=== PATIENT | female | born 2000 | race African-American/Black ===

== ENCOUNTER → 2022-07-24 | Day surgery (SDC) | payer MEDICARE, OTHER ==
[~2022-07-24] MED LIST: ABILIFY5 MG PO; FENTANYL CITRATE/PF 100MCG/2 ML INJ ONE; HEATHER0.35 MG PO; LIDOCAINE HCL 2% LOCAL INJ 5 ML SDV VIAL INJ ONE; MESALAMINE1 GM PO; MULTI-VITAMIN1 EACH PO; OMEPRAZOLE40 MG PO; PROBIOTIC PO; PROPOFOL IV EMULSION 10 MG/ML 20 ML VIAL ONE
[2022-07-24 17:30] VITALS: BP 106/76
== END | disposition home or self-care (01) ==
LOC: OR 13:13
PROVIDERS: ATTEND Internal Medicine Gastroenterology
DX: K51.90 Ulcerative colitis, unspecified, without complications (principal); K51.20 Ulcerative (chronic) proctitis without complications; M19.90 Unspecified osteoarthritis, unspecified site; F41.9 Anxiety disorder, unspecified; F32.A Depression, unspecified; Z79.899 Other long term (current) drug therapy
CPT/HCPCS: 45380; 81025; 83630; 83993; 86140; 86256; 86671; 87045; 87177; 87324; 87328; 87449; 88305; J2001; J2704; J3010; 45378

== ENCOUNTER → 2024-06-17 | Outpatient (REF) | payer MEDICARE, OTHER ==
[~2024-06-17] MED LIST changes: +DICYCLOMINE HCL20 MG PO; -FENTANYL CITRATE/PF 100MCG/2 ML INJ ONE; +FLUOXETINE HCL20 MG PO; -LIDOCAINE HCL 2% LOCAL INJ 5 ML SDV VIAL INJ ONE; -PROPOFOL IV EMULSION 10 MG/ML 20 ML VIAL ONE; +SUCRALFATE1 GM PO
== END ==
LOC: US 10:38
PROVIDERS: ATTEND Internal Medicine
DX: R10.30 Lower abdominal pain, unspecified (principal); R10.2 Pelvic and perineal pain
CPT/HCPCS: 76700; 76856